=== PATIENT | female | born 1940 | race Caucasian/White ===

== ENCOUNTER 2018-10-04 07:54 | Emergency (ER) | payer MEDICARE, OTHER ==
[~2018-10-04] VITALS: Ht 160 cm; Wt 52.0 kg
[2018-10-04 09:22] VITALS: BP 120/63
[2018-10-04] MEDS ORDERED: BUPIVACAINE/PF 0.5% INFIL ONE (09:30)
[2018-10-04] MEDS ORDERED: LIDOCAINE 1%, 10ML INFIL ONE (09:30)
[2018-10-04] MEDS ORDERED: LIDOCAINE-MPF 1%, 2ML ONE (09:31)
[2018-10-04] MEDS ORDERED: LIDOCAINE-MPF 1%, 5ML ONE (09:35)
[2018-10-04] MEDS ORDERED: ESCI20TA PO (09:56)
[2018-10-04] MEDS ORDERED: SIMV20TA3 PO (09:56)
[2018-10-04] MEDS ORDERED: BUSP10TA PO (09:56)
[2018-10-04] MEDS ORDERED: DICL50TA4 PO (09:56)
[2018-10-04] MEDS ORDERED: TRAZ-137 PO (09:56)
[2018-10-04] MEDS ORDERED: CAND1TAB PO (09:56)
[2018-10-04] MEDS ORDERED: HYDR-3237 PO (09:56)
== END 2018-10-04 11:03 | disposition home or self-care (01) ==
LOC: ED 10:25
DX: S62.331A Displaced fracture of neck of second metacarpal bone, left hand, initial encounter for closed fracture (principal); S63.115A Dislocation of metacarpophalangeal joint of left thumb, initial encounter; S00.83XA Contusion of other part of head, initial encounter; I10 Essential (primary) hypertension; W01.0XXA Fall on same level from slipping, tripping and stumbling without subsequent striking against object, initial encounter; Y93.89 Activity, other specified; Y92.009 Unspecified place in unspecified non-institutional (private) residence as the place of occurrence of the external cause; Y99.8 Other external cause status
CPT/HCPCS: 26700; 70486; 99284